=== PATIENT | female | born 1985 | race Caucasian/White ===

== ENCOUNTER → 2016-09-24 | Outpatient (CLI) | payer OTHER ==
[2016-09-30 17:02] LABS: HPV 16 Not Detected (NOTDET); HPV 18 Not Detected (NOTDET)
== END | disposition home or self-care (01) ==
LOC: MW.CHOBGYN 10:06
PROVIDERS: ATTEND Obstetrics & Gynecology
DX: R87.619 Unspecified abnormal cytological findings in specimens from cervix uteri (principal)
CPT/HCPCS: 87624; G0145

== ENCOUNTER 2017-08-08 07:15 | Day surgery (SDC) | payer OTHER ==
[~2017-08-08 07:15] MED LIST: Lidocaine 2% 5 ML SDV ONE; Midazolam 1 MG/ML 2 ML SDV ONE; Ondansetron 4 MG/2 ML SDV ONE; Propofol 200 MG/20 ML SDV ONE; fentaNYL 100 MCG/2 ML SDV ONE
[2017-08-08] MEDS ORDERED: ceFAZolin/Dextrose,Iso-Osmotic 2 GM/50 ML Duplex Bag IV ONE (07:18)
[2017-08-08] MEDS ORDERED: fentaNYL 100 MCG/2 ML SDV IVPUSH PRN (07:21)
[2017-08-08] MEDS ORDERED: Bupivacaine 25%/EPINEPHrine/PF 30 ML ONE (07:25)
--- NOTE | 2017-08-08 07:37 | PCM.PREANE ---
Preanesthetic Assessment - Anesthesia/Transfusion/Family Hx Anesthesia History: Prior Anesthesia Without Reaction Family History of Anesthesia Reaction: No Transfusion History: No Prior Transfusion(s) - Review of Systems General: No Symptoms Pulmonary: No Symptoms Cardiovascular: No Symptoms Gastrointestinal: No Symptoms Neurological: No Symptoms Other: Reports: None - Physical Assessment NPO Status Date: 08/07/17 O2 Sat by Pulse Oximetry: 97 Respiratory Rate: 16 Vital Signs: Last Vital Signs Temp 36.4 C 08/08/17 07:24 Pulse 92 08/08/17 07:24 Resp 16 08/08/17 07:24 BP 144/71 H 08/08/17 07:24 Pulse Ox 97 08/08/17 07:24 Height: 1.65 m Weight: 91.626 kg ASA Class: 1 Mental Status: Alert & Oriented x3 Airway Class: Mallampati = 1 Dentition: Reports: Normal Dentition ROM/Head Extension: Full Lungs: Clear to Auscultation, Normal Respiratory Effort Cardiovascular: Regular Rate, Regular Rhythm - Allergies Allergies/Adverse Reactions: Allergies Allergy/AdvReac Type Severity Reaction Status Date / Time No Known Allergies Allergy Verified 08/05/17 10:04 - Anesthesia Plan Pre-Op Medication Ordered: None - Acknowledgements Anesthesia Type Planned: General Anesthesia Pt an Appropriate Candidate for the Planned Anesthesia: Yes Alternatives and Risks of Anesthesia Discussed w Pt/Guardian: Yes Pt/Guardian Understands and Agrees with Anesthesia Plan: Yes PreAnesthesia Questionnaire HEENT History: Reports: None Neurological History: Reports: Concussion Endocrine/Metabolic History: Reports: Obesity/BMI 30+ - Past Surgical History Head Surgeries/Procedures: Reports: None HEENT Surgical History: Reports: LASIK, Naso-Sinus Surgery, Oral Surgery Other HEENT Surgeries/Procedures: hx fx nose - SUBSTANCE USE Smoking Status *Q: Never Smoker Recreational Drug Use History: No - HOME MEDS Home Medications: Home Meds Erythromycin Base [Erythromycin 0.5% Ophth Oint] 1 applic EYEBOTH ASDIRECTED [History] Levonorgestrel-Ethin Estradiol [Aviane-28 Tablet] 1 tab PO ASDIRECTED 08/05/17 [ History] Multivitamin [Multivitamins] 1 tab PO DAILY 08/05/17 [History] cycloSPORINE [Restasis Multidose] 1 drop EYEBOTH ASDIRECTED 03/20/18 [History] - CURRENT (IN HOUSE) MEDS Current Meds: Current Medications Bupivacaine HCl/Epinephrine Bitart (Marcaine 0.25%/Epinephrine 1:200,000) 10 ml INJECT ONETIME ONE Stop: 08/08/17 08:01 Fentanyl (Sublimaze) 50 mcg IVPUSH .Q5MIN PRN PRN Reason: Pain Cefazolin Sodium/Dextrose 2 gm (/ Premix) 50 mls @ 100 mls/hr IV ONETIME ONE Stop: 08/08/17 08:29 Lactated Ringer's (Ringers, Lactated) 1,000 mls @ 125 mls/hr IV ASDIRECTED KAI Last Admin: 08/08/17 07:26 Dose: 125 mls/hr Discontinued Medications Cefazolin Sodium/Dextrose (Ancef) Confirm Administered Dose 2 gm IV .STK-MED ONE Stop: 08/08/17 07:19 Fentanyl (Sublimaze) Confirm Administered Dose 100 mcg .ROUTE .STK-MED ONE Stop: 08/08/17 07:16 Bupivacaine HCl/Epinephrine Bitart (Sensorc Mpf 0.25%-Epi [id number]) Confirm Administered Dose 30 mls @ as directed .ROUTE .STK-MED ONE Stop: 08/08/17 07:26 Lidocaine (Xylocaine-Mpf 2%) Confirm Administered Dose 5 ml .ROUTE .STK-MED ONE Stop: 08/08/17 07:16 Midazolam HCl (Versed 1 Mg/Ml) Confirm Administered Dose 2 mg .ROUTE .STK-MED ONE Stop: 08/08/17 07:16 Ondansetron HCl (Zofran) Confirm Administered Dose 4 mg .ROUTE .STK-MED ONE Stop: 08/08/17 07:16 Propofol (Diprivan 20 Ml) Confirm Administered Dose 200 mg .ROUTE .STK-MED ONE Stop: 08/08/17 07:16
[2017-08-08] MEDS ORDERED: Lactated Ringers 1,000 ML IV SCH (08:00)
[2017-08-08] MEDS ORDERED: ceFAZolin 2 GM in Premix Bag 1 BAG IV ONE (08:00)
[2017-08-08] MEDS ORDERED: Bupivacaine 0.25%/EPINEPHrine 1:200,000 10 ML SDV INJECT ONE (08:00)
[2017-08-08] MEDS ORDERED: Dexamethasone 4 MG/ML 5 ML MDV ONE (08:12)
[2017-08-08] MEDS ORDERED: Ketorolac 30 MG/ML SDV ONE (08:21)
--- NOTE | 2017-08-08 08:59 | PCM48HPAN ---
Post Anesthesia Note - EVALUATION WITHIN 48HRS OF ANESTHETIC Vital Signs in Normal Range: Yes Patient Participated in Evaluation: Yes Respiratory Function Stable: Yes Airway Patent: Yes Cardiovascular Function Stable: Yes Hydration Status Stable: Yes Pain Control Satisfactory: Yes Nausea and Vomiting Control Satisfactory: Yes Mental Status Recovered: Yes Resp Rate: 13
--- NOTE | 2017-08-08 08:59 | PCM.POSTAN ---
POST ANESTHESIA ASSESSMENT - MENTAL STATUS Mental Status: Alert, Oriented - RESPIRATORY Respiratory Status: Respiratory Rate WNL, Airway Patent, O2 Saturation Stable - CARDIOVASCULAR CV Status: Pulse Rate WNL, Blood Pressure Stable - GASTROINTESTINAL GI Status: No Symptoms - POST OP HYDRATION Hydration Status: Adequate & Stable
--- NOTE | 2017-08-08 12:50 | PCM.OPNOTE ---
- General Post-Op/Procedure Note Date of Surgery/Procedure: 08/08/17 Operative Procedure(s): left dorsal wrist ganglion excision Pre Op Diagnosis: left dorsal wrist ganglion Post-Op Diagnosis: Same Anesthesia Technique: General LMA, Local Primary Surgeon: Argelia Meeks Speech Scientist: Kiarra Garsia Complications: None Condition: Good Free Text/Narrative:: Intake & Output 08/07/17 08/08/17 08/08/17 23:59 07:59 15:59 Intake Total 900 Balance 900
--- NOTE | 2017-08-08 13:48 | OR ---
SURGEON: TITO VUONG MD DATE OF PROCEDURE: 08/08/2017 PREOPERATIVE DIAGNOSIS: Left dorsal wrist ganglion. POSTOPERATIVE DIAGNOSIS: Left dorsal wrist ganglion. PROCEDURE: Left dorsal wrist ganglion excision. BULK TRUCK DRIVER: RACHAEL Mak REASON FOR BULK TRUCK DRIVER: Prepping, draping, and closure assistance. ANESTHESIA: General LMA with local. INDICATIONS: Ms. Suárez is a 32-year-old female with a left dorsal wrist ganglion that is bothersome to her. Risks and benefits of removal were discussed with her and she was in agreement to proceed. Risks were including, but not limited to, bleeding, infection, damage to underlying or overlying structures, possible need for future interventions, possible scarring. PROCEDURE IN DETAIL: After informed consent was obtained and placed on the chart, the patient was brought to the operating theater in supine position. After adequate general LMA anesthesia was obtained, the area was prepped draped and a time-out was completed to confirm side and site. The arm was then exsanguinated and the tourniquet was insufflated to 200 mmHg. 0.25% Marcaine with epinephrine was used in a field block in the area. Once adequately anesthetized, a longitudinal incision was used directly over the dorsal wrist ganglion. Dissection was carried down circumferentially. The stalk was transected and the area was copiously irrigated. The capsule was then closed using 2 [id number] 4-0 Monocryl sutures. Additional closure was attempted on top of this. Once adequately secured, the wound was copiously irrigated again and the skin was closed using a running 4-0 subcuticular. The patient tolerated this well. The wound was dressed with Mastisol, Steri-Strips, fluffs, and a short-arm plaster wrist cock-up splint. The patient tolerated the procedure well. All counts and needles were correct at the end of case. FOLLOWUP INSTRUCTIONS: The patient will see us in 10 to 14 days, sooner if any problems, questions, or concerns. She was given a prescription for pain control. KARTHIK / SANIYA /[id number]
== END 2017-08-08 09:52 | disposition home or self-care (01) ==
LOC: MW.SDS 07:15
PROVIDERS: ATTEND Plastic Surgery
DX: M67.432 Ganglion, left wrist (principal); E66.9 Obesity, unspecified; Z68.30 Body mass index [BMI] 30.0-30.9, adult; Z79.899 Other long term (current) drug therapy
CPT/HCPCS: 25111; 81025; J0690; J1100; J1885; J2250; J2405; J3010; J7120; 01810; 88304; J2704